=== PATIENT | male | born 1945 | race Caucasian/White ===

== ENCOUNTER 2024-01-01 20:42 | Emergency (ER) | payer MEDICARE ==
[~2024-01-01] VITALS: Ht 167.6 cm; Wt 62.1 kg
[2024-01-01 20:53] VITALS: O2SAT 98
[2024-01-01] MEDS: HALOPERIDOL LACTATE 5MG/ML VIAL IM ONE (21:21)
[2024-01-01] MEDS: DIPHENHYDRAMINE 50MG/ML VIAL IM PRN (21:21)
[2024-01-01] MEDS: LORAZEPAM 2MG/ML INJ IM ONE (21:21)
[2024-01-01 22:27] LABS: BASOPHILS % 0.4 % (0.0-2.0); EOSINOPHILS % 0.3 % (0.0-5.0); HEMATOCRIT. 43.2 % (42.0-52.0); HEMOGLOBIN. 14.4 g/dL (14.0-18.0); LYMPHOCYTES % 24.9 % (20.0-50.0); MEAN CORPUSCULAR HEMOGLOBIN 28.8 pg (28.0-32.0); MEAN CORPUSCULAR HGB CONC 33.2 g/dL (31.0-37.0); MEAN CORPUSCULAR VOLUME 86.8 fL (80.0-94.0); MEAN PLATELET VOLUME 8.5 fl (7.4-10.4); MONOCYTES % 10.5 % (2.0-8.0); NEUTROPHILS % 63.9 % (40.0-76.0); PLATELET 334 x1000/uL (130-400); RED BLOOD CELL COUNT 4.98 mill/uL (4.7-6.1); RED CELL DISTRIBUTION WIDTH 14.5 % (11.6-14.6); WHITE BLOOD COUNT 9.1 x1000/uL (4.5-11.0)
[2024-01-01 22:37] LABS: CHLORIDE 101 mEq/L (98-107); POTASSIUM 3.1 mEq/L (3.5-5.1); SODIUM 137 mEq/L (136-145)
[2024-01-01 22:38] LABS: CALCIUM 9.6 mg/dL (8.7-10.4); CARBON DIOXIDE 28 mEq/L (21-32)
[2024-01-01 22:39] LABS: CLARITY URINE CLEAR (CLEAR); COLOR URINE DARK YELLOW (YELLOW); GLUCOSE URINE NEGATIVE (NEGATIVE); KETONES URINE TRACE (NEGATIVE); LEUKOCYTE ESTERASE URINE NEGATIVE (NEGATIVE); NITRITE URINE NEGATIVE (NEGATIVE); OCCULT BLOOD URINE NEGATIVE (NEGATIVE); PH URINE 5.5 (4.5-8.0); PROTEIN URINE 1+ (NEGATIVE); SPECIFIC GRAVITY URINE 1.023 (1.005-1.030)
[2024-01-01 22:43] LABS: GLUCOSE 153 mg/dL (70-105); UREA NITROGEN BLOOD 13 mg/dL (9-23)
[2024-01-01 22:44] LABS: ETHANOL BLOOD < 10 mg/dL (<10)
[2024-01-01 22:45] LABS: ACETAMINOPHEN < 2 ug/mL (10-30)
[2024-01-01 22:47] LABS: *AMPHETAMINES SCREEN URINE NEGATIVE (NEGATIVE); *BARBITURATES SCREEN URINE NEGATIVE (NEGATIVE); *BENZODIAZEPINES SCREEN URINE NEGATIVE (NEGATIVE); *COCAINE SCREEN URINE NEGATIVE (NEGATIVE); CANNABINOID URINE SCREEN PRESUMPTIVE POSITIVE (NEGATIVE); METHADONE URINE SCREEN NEGATIVE (NEGATIVE); OPIATES URINE SCREEN NEGATIVE (NEGATIVE); PHENCYCLIDINE URINE SCREEN NEGATIVE (NEGATIVE)
[2024-01-01 23:00] LABS: BACTERIA URINE 1+; RBC URINE NONE SEEN /hpf (0-2); SQUAMOUS EPITHELIAL CELL URINE FEW /lpf (RARE/1+)
[2024-01-01 23:01] LABS: WBC URINE 0-2 /hpf (0-2)
[2024-01-01] MEDS: POTASSIUM CHLORIDE 20MEQ/PACKET PO ONE (23:45)
[2024-01-02] MEDS: POTASSIUM CHLORIDE 20MEQ/PACKET PO NR (06:36)
[2024-01-05] MEDS: POTASSIUM CHLORIDE 20MEQ/PACKET PO ONE (07:00)
[2024-01-05] MEDS: POTASSIUM CHLORIDE 20MEQ/PACKET PO NR (08:20)
[2024-01-07 09:30] VITALS: BP 152/88; PULSE 96; RESP 16; TEMP 36.72516; O2SAT 98
== END 2024-01-07 12:10 | disposition home or self-care (01) ==
LOC: ER 20:42
DX: U07.1 COVID-19 (principal); E87.6 Hypokalemia; I10 Essential (primary) hypertension; F19.90 Other psychoactive substance use, unspecified, uncomplicated
CPT/HCPCS: 80305; 80048; 81003; 80307; 80329; 80320; 85025; 36415; 96372; 99285; 87426; J1200; J1630; J2060; G0480